=== PATIENT | female | born 1955 | race Caucasian/White ===

== ENCOUNTER 2022-04-24 23:06 | Emergency (ER) | payer OTHER, BC ==
[~2022-04-24] VITALS: Ht 170.2 cm; Wt 77.1 kg
[2022-04-24 23:25] VITALS: BP_SYST 151
--- NOTE | 2022-04-24 23:25 | NUR ---
Triaged and placed patient back to the waiting room. No acute respiratory distress at this time. VSS. Informed patient to notify ED staff for any changes in condition or worsening of symptoms while waiting to be seen by a provider. Patient verbalized understanding.
--- NOTE | 2022-04-25 00:26 | NUR ---
Dr. Vickers at bedside examining the patient.
[2022-04-25 00:48] VITALS: BP_SYST 137
--- NOTE | 2022-04-25 00:48 | NUR ---
Patient given written and verbal discharge instructions and verbalizes understanding. ER MD discussed with patient the results and treatment provided. Patient in stable condition. ID arm band removed. Patient educated on pain management and to follow up with PMD. Pain Scale 0/10. Opportunity for questions provided and answered.
== END 2022-04-25 00:48 | disposition home or self-care (01) ==
LOC: SED 23:06
DX: I10 Essential (primary) hypertension (principal); R51.9 Headache, unspecified; R42 Dizziness and giddiness; Z79.899 Other long term (current) drug therapy
CPT/HCPCS: 99281